=== PATIENT | male | born 1930 | race Caucasian/White ===

== ENCOUNTER 2017-02-04 09:01 | Inpatient (IN) | payer MEDICARE, SELFPAY ==
[~2017-02-04] VITALS: Ht 162.6 cm; Wt 86.5 kg
[~2017-02-04 09:01] MED LIST: ASA325 MG PO; DELTASONE DPS20 MG PO; DULCOLAX-DPS10 MG PR; FLOMAX DPS0.4 MG PO; KLOR-CON M2020 ME1 PO; LEVAQUIN DPS500 MG PO; MIRALAX PACKET17 GM PO; PROTONIX40 MG PO; SPIRIVA18 MCG IH; SURFAK DPS240 MG PO; SYMBICORT160 MCG/6 IH; TYLENOL DPS325 MG PO; ZESTRIL DPS5 MG PO
--- NOTE | 2017-02-06 08:01 | HP ---
ADMIT: 02/04/2017 RM/LOC: 413 [facility] MR#: [id number] [facility] [address] [place] [id number] RIKY SHERMAN [facility] [place] [address] History and Physical SEX: M AGE: 86 : 1930 DATE OF SERVICE: HISTORY OF PRESENT ILLNESS: Mr. Sherman is an 86-year-old white male, who is cared for through the [place] system, presented to the emergency room with increasing shortness of breath, decreased activity tolerance. He has a past medical history of COPD, remote tobacco, has smoked for at least 25-30 years. No alcohol for 6 years; history of hypertension, status post CVA; hypertension; BPH; coronary artery disease; hyperlipidemia; and diabetes; who presents to the emergency with increasing shortness breath and decreased activity tolerance. In the ER, sodium was 140, potassium 4.2, BUN and creatinine 25 and 1.1, blood sugar 173. White count 0.9, hemoglobin 14.7, platelet count 208. Chest x-ray showed bilateral opacities, right parotid gland 3.1 x 2.6, fat-containing fatty mass. SOCIAL HISTORY: He lives alone. His daughter is very attentive. No tobacco or alcohol at this time. FAMILY HISTORY: Noncontributory. MEDICATIONS: As followed: 1. DuoNeb breathing treatments q.i.d. 2. Albuterol inhaler p.r.n. 3. Symbicort 160-4.5 two puffs b.i.d. 4. Docusate sodium. 5. Gabapentin 300 mg t.i.d. 6. Lisinopril-hydrochlorothiazide 10-12 one tab daily. 7. Ibuprofen 600 mg b.i.d. 8. Lactobacillus. 9. Milk of Mag. 10.Multivitamin. 11.Flomax 0.4 mg daily. 12.Ascorbic acid. 13.Aspirin. 14.Vitamin D. 15.Guaifenesin. PHYSICAL EXAMINATION: GENERAL: He is alert he has AN inspiratory wheezes present blood pressure is 143/57, temp is 96.9, heart rate and O2 sats 96%. HEENT: He does have a very full neck as well as you can feel a soft-tissue ADMIT: 02/04/2017 RM/LOC: 413 [facility] MR#: [id number] [id number] [address] [place] [address] History and Physical SEX: M AGE: 86 : 1930 abnormality in right lateral neck, which abuts up against the parotid. LUNGS: Diminished to auscultation. Soft wheezes and barrel chested. ABDOMEN: Soft, rounded. Positive bowel sounds present. EXTREMITIES: Trace edema. 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 We at this time, will admit and place on IV antibiotics aggressive steroid. Physical Therapy to see and assist, Accu-Chek, and continued assessment of this soft tissue mass with MRI and start Zithromax 500 mg p.o. daily in addition to the Levaquin. We will follow closely. Carissa Quintanilla MD/ steve JOB #: [id number] CC: Carissa Quintanilla, Attending Physician Carissa Quintanilla, Family Physician
[2017-02-08] MEDS ORDERED: DUONEB DPS3 ML IH (16:48)
[2017-02-08] MEDS ORDERED: PROVENTIL HFA6.7 GM IH (16:48)
[2017-02-08] MEDS ORDERED: SYMBICORT160 MCG/6 IH (16:49)
[2017-02-08] MEDS ORDERED: COLACE-DPS100 MG PO (16:49)
[2017-02-08] MEDS ORDERED: NEURONTIN DPS300 MG PO (16:50)
[2017-02-08] MEDS ORDERED: ZESTORETIC 10/11 TAB PO (16:50)
[2017-02-08] MEDS ORDERED: SENOKOT DPS8.6 MG PO (16:50)
[2017-02-08] MEDS ORDERED: ORGAN-I NR200 MG PO (16:51)
[2017-02-08] MEDS ORDERED: MILK OF MAGNESI10 ML PO (16:51)
[2017-02-08] MEDS ORDERED: ACIDOPHILUS1 EAC1 PO (16:51)
[2017-02-08] MEDS ORDERED: VITAMIN C1000 MG PO (16:52)
[2017-02-08] MEDS ORDERED: ASA325 MG PO (16:52)
[2017-02-08] MEDS ORDERED: FLOMAX DPS0.4 MG PO (16:52)
[2017-02-08] MEDS ORDERED: PRESERVISION A1 EACH PO (16:52)
[2017-02-08] MEDS ORDERED: VITAMIN D-32000 UNI1 PO (16:53)
[2017-02-08] MEDS ORDERED: LEVAQUIN DPS250 MG PO (16:54)
[2017-02-08] MEDS ORDERED: DELTASONE DPS10 MG PO (16:54)
[2017-02-08] MEDS ORDERED: GLUCOPHAGE-DPS500 MG PO (16:55)
--- NOTE | 2017-02-12 08:07 | DS ---
ADMIT: 02/04/2017 RM/LOC: 413 [facility] MR#: [id number] [address] [address] RIKY SILVESTRE Yong [address] [place] [address] Discharge Summary SEX: M AGE: 86 : 1930 ADMISSION DATE: 02/04/2017 DISCHARGE DATE: 02/07/2017 DISCHARGE DIAGNOSES: 1. Chronic obstructive pulmonary disease exacerbation. 2. History of remote tobacco use. 3. Hypertension. 4. History of cerebrovascular accident. 5. Benign prostatic hyperplasia. 6. Coronary artery disease. 7. Hyperlipidemia. 8. Diabetes. 9. Soft-tissue density, lateral neck. HISTORY OF PRESENT ILLNESS: Well documented in his H and P. LABORATORY AND RADIOGRAPHIC ASSESSMENT: As follows. On admission, his white count was 8.8, hemoglobin 14.7, platelet count 208,000. Discharge white count was 12.7. Sodium 136, potassium 4.2, BUN and creatinine 33 and 1.4; at time of discharge, BUN and creatinine were 47 and 1.0. Serum sodium of 139, potassium of 4.0. Liver function studies were normal. His blood sugars ranged between 115 to 148. His bacterial culture showed no evidence of growth. CT of the neck showed fatty mass in the right neck with ipsilateral mild prominent right parotid gland, recommend soft-tissue neck MRI with and without contrast. Mildly prominent mediastinal lymph nodes, indeterminate emphysema. Chest x-ray showed mild cardiac enlargement, bilateral opacities. Repeat chest x-ray showed bilateral opacities, trace pleural effusion. Ultrasound of the mass in the neck, showed a 4.4 cm hypoechoic structure at the level of the right neck correlates with a palpable finding as well as CT, this appears probably fatty, this may be a lipoma closely related to the right parietal glad. No suspicious shadowing demonstrated. Overnight oximetry did show evidence of hypoxia. HOSPITAL COURSE: This elderly white gentleman is a [facility], [facility]. At the time of admission, he was placed on telemetry 4th floor, oxygen at 1 to 3 L per nasal cannula, given IV Solu-Medrol as well as Levaquin. Initiated physical therapy. Low dose sliding scale. Evidence of soft tissue density lateral neck. MRI was ordered, but the patient was unable to tolerate laying down for an MRI and subsequent ultrasound was performed. He was started on azithromycin 500 mg one tablet p.o. daily. His cardiac enzymes were performed, which showed no evidence of abnormalities. Chest x-ray did not show any development of pneumonia. He had continued improvement. He did have some mild elevation in blood sugar. We did ask [employer] to help us in discharge planning. On 02/06, he was started on oral prednisone, and Levaquin was changed to every 48 hours, . He had continued improvement on 02/07 and he was discharged . ADMIT: 02/04/2017 RM/LOC: 413 [facility] MR#: [id number] [address] [place] [id number] RIKY SILVESTRE [address] [place] [address] Discharge Summary SEX: M AGE: 86 : 1930 DISCHARGE MEDICATIONS: 1. Prednisone 20 mg one tab daily for 4 days, then 10 mg daily. 2. Levaquin 250 mg daily for 7 days. [facility]. 3. Metformin 500 mg 1 tablet p.o. daily at bedtime. As he had evidence of elevated blood sugar, hemoglobin A1c is 6.5. He subsequently was discharged in stable condition. he will have followup through the [place] system. I did make available for him his labs, his x- ray, CT, ultrasound for further evaluation of his soft tissue mass on the right side of his neck. His pulmonary status was stable at the time of discharge, chronic obstructive pulmonary disease exacerbation. Discharged in stable condition. Carissa Quintanilla MD/ steve JOB #: [id number] CC: Carissa Quintanilla MD, Attending Physician Carissa Quintanilla MD, Family Physician
--- NOTE | 2017-02-20 15:23 | ER ---
ADMIT: 02/04/2017 RM/LOC: 413 MR#: [id number] [id number] [address] KONRADRIKY [facility] [place] [address] Emergency Room Report SEX: M AGE: 86 : 1930 DATE: 02/04/2017 ADDENDUM: An 86-year-old white male coming in with shortness of breath and wheezing. He does have a degree of COPD, diabetes, cardiac disease, hypertension, and lung disease as well. At this time, CBC and chemistry were negative. He does not meet the sepsis criteria; however, we did culture him and aspen a lactate and then we gave him Levaquin 750 mg, just to cover him. He does not meet the fluid criteria at this time. I spoke with Dr. Anderson, she is [facility]. He is [facility], does not want to go to [place], so we will admit him for COPD exacerbation. He also was given Decadron 20 mg IV as well. CONDITION ON DISCHARGE: Serious but stable. Aurelio Andrews MD/ arvinl JOB #: [id number] CC: Carissa Quintanilla MD, Attending Physician Carissa Quintanilla MD, Family Physician
== END 2017-02-07 11:35 | disposition home or self-care (01) | DRG 192 ==
LOC: ER 09:01 → 4PCU 11:50
PROVIDERS: ADMIT Internal Medicine
DX: J44.1 Chronic obstructive pulmonary disease with (acute) exacerbation (principal); E11.9 Type 2 diabetes mellitus without complications; I10 Essential (primary) hypertension; N40.0 Benign prostatic hyperplasia without lower urinary tract symptoms; D17.0 Benign lipomatous neoplasm of skin and subcutaneous tissue of head, face and neck; I25.10 Atherosclerotic heart disease of native coronary artery without angina pectoris; R09.02 Hypoxemia; E78.5 Hyperlipidemia, unspecified; Z79.82 Long term (current) use of aspirin; Z87.891 Personal history of nicotine dependence; Z86.73 Personal history of transient ischemic attack (TIA), and cerebral infarction without residual deficits